=== PATIENT | male | born 2000 | race Hispanic/Latino ===

== ENCOUNTER 2021-12-17 10:49 | Emergency (ER) | payer SELFPAY ==
[~2021-12-17] VITALS: Ht 177.8 cm; Wt 83.0 kg
[~2021-12-17 10:49] MED LIST: AEROCHAMBER PLUS INH; ALBUTEROL S2.5 MG/.5 IN; ALBUTEROL SUL0.083 % IN; AMOXICILLIN500 MG PO; AMOXICILLIN875 MG PO; ARNUITY EL100 MCG/AC IN; EPIPEN0.3 MG IM; FLOVENT DISK100 MCG IN; FLOVENT HFA110 MCG IN; MEDDOSEPAK PO; NO HOME MEDS; PREDNISODT15 PO; PRELONE15 MG/5 M1 PO; PROAIR HFA IN; PROVENTIL HFA IN; PROVENTIL0.083 % IN; ROBITUSSIN AC10 ML PO; VENTOLIN HFA IN; ZITHROMAX250 MG PO; ZPAK PO; orapred
[2021-12-17] MEDS ORDERED: IBUPROFEN600 MG PO (11:53)
[2021-12-17] MEDS ORDERED: KEFLEX500 MG PO (11:53)
[2021-12-17 11:57] VITALS: BP 131/78
== END 2021-12-17 12:11 | disposition home or self-care (01) | DRG 605 ==
LOC: ED 10:49
DX: S81.812A Laceration without foreign body, left lower leg, initial encounter (principal); W26.1XXA Contact with sword or dagger, initial encounter

== ENCOUNTER 2021-12-28 12:15 | Emergency (ER) | payer SELFPAY ==
[~2021-12-28] VITALS: Ht 177.8 cm; Wt 82.1 kg
[~2021-12-28 12:15] MED LIST changes: +IBUPROFEN600 MG PO; +KEFLEX500 MG PO
[2021-12-28 12:26] VITALS: BP 119/75
[2021-12-28] MEDS ORDERED: CEPHALEXIN500 MG PO (12:29)
[2021-12-28 12:30] VITALS: BP 127/76
[2021-12-28 12:45] VITALS: BP 121/72
[2021-12-28 13:00] VITALS: BP 112/69
== END 2021-12-28 12:51 | disposition home or self-care (01) | DRG 950 ==
LOC: ED 12:15
DX: S81.812D Laceration without foreign body, left lower leg, subsequent encounter (principal); X58.XXXD Exposure to other specified factors, subsequent encounter; J45.909 Unspecified asthma, uncomplicated